=== PATIENT | male | born 1950 | race Caucasian/White ===

== ENCOUNTER 2018-12-14 11:19 | Day surgery (SDC) | payer MEDICARE, OTHER ==
[2018-12-14] MEDS ORDERED: FENTANYL PF 100MCG/2ML VIAL IV ONE (11:20)
[2018-12-14] MEDS ORDERED: PROPOFOL 10 MG/ML VIAL IV ONE (11:20)
[2018-12-14] MEDS ORDERED: LIDOCAINE 2% MDV (20MG/ML) 20ML VIAL IV ONE (11:20)
--- NOTE | 2018-12-15 12:11 | Operative Note ---
DATE OF SURGERY: 12/14/2018 OPERATION: ESOPHAGOGASTRODUODENOSCOPY with biopsy. PREOPERATIVE DIAGNOSIS: Abnormal imaging suggesting possible esophageal thickening. POSTOPERATIVE DIAGNOSES: 1. Normal-appearing esophagus. 2. Normal-appearing post sleeve stomach. 3. Duodenal erosion? PROCEDURE: After informed consent was obtained from the patient, he was placed in the left lateral decubitus position in the endoscopy suite, sedated and monitored by the department of anesthesia. A well-lubricated LII112 gastroscope was placed in the posterior oropharynx under direct visualization and passed to the proximal esophagus. The endoscope was advanced through the proximal, mid, and distal esophagus. The GE junction and esophagus were unremarkable. Multiple examinations and insertions of the endoscope did not reveal any obvious abnormality. The gastric body was unremarkable although there was some postoperative change consistent with prior sleeve. The stomach appeared unremarkable otherwise. The pylorus, duodenal bulb, and sweep were carefully inspected. In the duodenal sweep, there was a questionable erosion versus polypoid irregularity in the second portion of the duodenum. Photograph was taken. Multiple biopsies were obtained from this region as well. This did not appear to be in the ampulla but was somewhat in the region of the ampulla, perhaps just distal to it. The endoscope was retracted into the gastric body. J-turn views of the proximal stomach were unrevealing. The endoscope was straightened, removed throughout the course of the esophagus, and again no esophageal abnormalities were identified. RECOMMENDATIONS: The patient should resume his medications and diet. We will await the results of the biopsy. As always, thank you for allowing me to participate in the healthcare of your patients. CC: DO NICCI Yeboah
== END 2018-12-14 12:15 | disposition home or self-care (01) ==
LOC: HOP 11:19
PROVIDERS: ATTEND Internal Medicine Gastroenterology
DX: R91.8 Other nonspecific abnormal finding of lung field (principal); D13.2 Benign neoplasm of duodenum; K21.9 Gastro-esophageal reflux disease without esophagitis; I10 Essential (primary) hypertension; E78.00 Pure hypercholesterolemia, unspecified; M19.90 Unspecified osteoarthritis, unspecified site
CPT/HCPCS: 43239; 00731; 88305; J3010